=== PATIENT | male | born 1940 | race Caucasian/White ===

== ENCOUNTER 2019-08-02 05:54 | Inpatient (IN) | payer BC, OTHER ==
[2019-08-02] MEDS ORDERED: oxyCODONE HCL 10 MG SUSTAINED ACTING TABLET PO ONE ×2 (06:04→06:50)
[2019-08-02] MEDS ORDERED: CEFAZOLIN 2 GM in DEXTROSE 5%-WATER - 50 ML IVPB ONE (06:04)
[2019-08-02] MEDS ORDERED: TRANEXAMIC ACID 1000 MG/10 ML VIAL IVPUSH ONE (06:04)
[2019-08-02] MEDS ORDERED: CELECOXIB 200 MG CAPSULE PO ONE ×2 (06:04→07:00)
[2019-08-02] MEDS ORDERED: PANTOPRAZOLE 40 MG TABLET PO ONE ×2 (06:04→06:55)
[2019-08-02] MEDS ORDERED: BUPIVACAINE LIPOSOME/PF (EXPAREL) 266 MG/20 ML VIAL ONE (06:46)
[2019-08-02] MEDS ORDERED: MIDAZOLAM HCL 2 MG/2 ML SINGLE DOSE VIAL ONE ×2 (06:46→07:11)
[2019-08-02] MEDS ORDERED: SODIUM CHLORIDE 0.9% P/F 10 ML VIAL IJ ONE (06:47)
[2019-08-02 07:11] VITALS: BMI 25.0
[2019-08-02] MEDS ORDERED: PROPOFOL 20 ML ONE ×4 (07:11→10:05)
--- NOTE | 2019-08-02 07:28 | HP ---
Admitting History and Physical - Admission Chief Complaint: left knee osteoarthritis x years History of Present Illness: 78 year old male presents in regard to their left knee. Long-standing history of left knee osteoarthritis. Patient complains of pain, limited range of motion , difficulty ambulating, and difficulty with activities of daily living. Patient has failed conservative treatment options including PO medications, activity modification, injections, and exercise programs. At this point, patient like to proceed with surgical intervention, left total knee arthroplasty MAKOplasty. History Source: Patient - Past Medical History Cardiovascular: Yes: Hyperlipdemia Heme/Onc: Yes: B12 Deficiency Musculoskeletal: Yes: Osteoarthritis Endocrine: Yes: Diabetes Mellitus, Other (Vitamin D) - Past Surgical History Additional Past Surgical History: See written history & physical. - Smoking History Smoking history: Former smoker Have you smoked in the past 12 months: No If you are a former smoker, when did you quit?: 1973-STOOPED CIGARS AFTER IN 1988 - Alcohol/Substance Use Hx Alcohol Use: Yes (1-2 PER DAY) Home Medications - Allergies Allergies/Adverse Reactions: Allergies Allergy/AdvReac Type Severity Reaction Status Date / Time No Known Allergies Allergy Verified 08/02/19 06:49 - Home Medications Home Medications: Ambulatory Orders Aspirin [ASA -] 81 mg PO DAILY 07/16/19 Atorvastatin Ca [Lipitor] 20 mg PO DAILY 07/16/19 Calcium Citrate/Vitamin D3 [Calcium Citrate - Vit D3 Tab] 2 each PO BID Cholecalciferol (Vitamin D3) [Vitamin D3] 2,000 unit PO DAILY 07/16/19 Cyanocobalamin [Vitamin B12 -] 2,000 mcg PO DAILY 07/16/19 Metformin HCl [Glucophage] 1,000 mg PO BID 07/16/19 Multivit-Min/FA/Lycopen/Lutein [Centrum Silver Tablet] 1 each PO DAILY 07/16/19 [place]-3 Fatty Acids/Fish Oil [Fish Oil 1,000 mg Capsule] 1 each PO DAILY Ramipril 5 mg PO DAILY 07/16/19 Review of Systems - Review of Systems Musculoskeletal: reports: Crepitus (left knee), Decreased ROM (left knee), Joint Pain (left kneep), Joint Swelling (left knee) Physical Examination Vital Signs: Vital Signs Temperature 97.8 F 08/02/19 07:00 Pulse Rate 60 08/02/19 07:00 Respiratory Rate 18 01/13/20 07:00 Blood Pressure 148/78 08/02/19 07:00 O2 Sat by Pulse Oximetry (%) Constitutional: Yes: Well Nourished Eyes: Yes: Conjunctiva Clear, Diplopia HENT: Yes: Atraumatic Neck: Yes: Supple Cardiovascular: Yes: Regular Rate and Rhythm Respiratory: Yes: Regular Gastrointestinal: Yes: Soft ...Rectal Exam: Yes: Deferred Musculoskeletal: Yes: Joint Stiffness (left), Joint Swelling (left knee) Assessment/Plan 78 year old male presents in regard to their left knee. Long-standing history of left knee osteoarthritis. Patient complains of pain, limited range of motion , difficulty ambulating, and difficulty with activities of daily living. Patient has failed conservative treatment options including PO medications, activity modification, injections, and exercise programs. At this point, patient like to proceed with surgical intervention, left total knee arthroplasty MAKOplasty. Pros, cons, risks, benefits, and alternatives of a left total knee arthroplasty MAKOplasty were discussed with the patient at length. Patient confirms their understanding and consents to proceed with a left total knee arthroplasty MAKOplasty.
[2019-08-02] MEDS ORDERED: ceFAZolin SODIUM 1 GM VIAL ONE ×2 (07:39→07:40)
[2019-08-02] MEDS ORDERED: VANCOMYCIN 1,000 MG VIAL (RESTRICTED TO ID ONLY) ONE ×2 (07:40→10:07)
[2019-08-02] MEDS ORDERED: KETOROLAC TROMETHAMINE 30 MG/1 ML VIAL ONE (11:45)
[2019-08-02] MEDS ORDERED: traMADol HCL 50 MG TABLET ONE (11:45)
[2019-08-02] MEDS ORDERED: ACETAMINOPHEN INJECTION 100 ML IVPB ONE (11:45)
--- NOTE | 2019-08-02 12:32 | OP ---
Operative Note - Note: Operative Date: 08/02/19 Pre-Operative Diagnosis: Left knee OA Operation: left MEGAN TKA Post-Operative Diagnosis: Same as Pre-op Surgeon: Pierre Luna [employer] Attendant: Faviola Chatterjee Anesthesia: Spinal Estimated Blood Loss (mls): 200
[2019-08-02] MEDS ORDERED: ACETAMINOPHEN 1000 MG/100 ML VIAL (NON FORMULARY) IVPB ONE (12:36)
[2019-08-02] MEDS ORDERED: traMADol HCL 50 MG TABLET PO SCH (12:45)
[2019-08-02] MEDS ORDERED: KETOROLAC TROMETHAMINE 30 MG/1 ML VIAL IVPUSH SCH (12:45)
[2019-08-02] MEDS ORDERED: MAG HYDROX/AL HYDROX/SIMETH 30 ML UNIT-DOSE CUP PO PRN (12:48)
[2019-08-02] MEDS ORDERED: ONDANSETRON 4 MG/2 ML VIAL IVPUSH PRN ×2 (12:48→13:10)
[2019-08-02] MEDS ORDERED: MAGNESIUM HYDROX 2400MG/30ML ORAL SUSPENSION 30 ML CUP PO PRN (12:48)
[2019-08-02] MEDS ORDERED: LACTATED RINGERS SOLUTION 1,000 ML IV SCH (13:00)
[2019-08-02] MEDS ORDERED: PROMETHAZINE HCL 25 MG/1 ML VIAL IVPUSH PRN (13:10)
[2019-08-02] MEDS ORDERED: oxyCODONE HCL 5 MG TABLET PO PRN ×2 (13:10)
--- NOTE | 2019-08-02 16:26 | SPEC ---
DATE OF OPERATION: 08/02/2019 PREOPERATIVE DIAGNOSIS: Left knee osteoarthritis. POSTOPERATIVE DIAGNOSIS: Left knee osteoarthritis. PROCEDURE: Left total knee replacement with MAKOplasty robotic navigation. ATTENDING SURGEON: Ricky Howell MD SUBSTATION OPERATOR AUTOMATIC: [employer] ANESTHESIA: Spinal plus sedation. ESTIMATED BLOOD LOSS: 200 mL. COMPLICATIONS: None. DISPOSITION: The patient was transferred to the PACU in stable condition. IMPLANTS USED: [place] Triathlon cementless total knee components, size 6 femoral component, size 7 tibial component, 11-mm posterior stabilized polyethylene component, 35-mm patellar component. INDICATIONS: This is a 78-year-old male who presented to the office complaining of severe bilateral knee pain. He was seen and examined by Dr. Howell and diagnosed with severe bilateral knee osteoarthritis. The patient was treated initially nonoperatively with injections, medications, and physical therapy but continued to have severe pain and ambulatory dysfunction. He was, therefore, indicated for total knee replacements. The left knee was the more painful knee, so we elected to start with this one. The risks, benefits, and alternatives to the surgery were explained to the patient in great detail, and the patient elected to proceed with the procedure. DESCRIPTION OF PROCEDURE: On the day of surgery, the patient was taken to the operating room and placed on the OR table. Spinal anesthesia was administered by the anesthesiologist. The patient was then positioned supine on the table and all bony prominences were padded. The knee was then prepped and draped in the usual sterile fashion and intravenous antibiotics were given for infection prophylaxis. A surgical time-out was then performed with the team, and the patients identity, procedure, side, availability of implants, and the administration of antibiotics was confirmed. With the knee flexed, a midline incision was made and carried down through the subcutaneous fat to the underlying retinaculum. A medial parapatellar arthrotomy was performed. This was followed by a subperiosteal dissection of the tissue off the proximal, medial tibia. A portion of fat pad was removed from under the patellar tendon, and a small portion of fat was excised off the distal supracondylar femur. Electrocautery and an Clean [employer]ner[employer]ant[employer] bipolar sealing device were used to achieve hemostasis. The knee was then flexed further and the anterior horn of the lateral meniscus was released from the midline. Next, the anterior and posterior cruciate ligaments were transected. Grade 4 changes were noted diffusely throughout the knee. Femoral and tibial checkpoints were then placed in the appropriate location using a mallet. Two parallel bicortical self-drilling pins were placed in the tibial diaphysis after making stab incisions and bluntly dissecting down to bone. Two pins were then placed in the distal supracondylar femur. The [employer] software navigation arrays were then attached to both the femoral and tibial pins and the lower extremity was then registered to the robotic navigation device using various joint movements, as well as inputting several dozen reference points. The knee was then taken through a full range of motion with a corrective force applied. Alignment in varus/valgus as well as flexion/extension and soft tissue balance was measured in various positions. The navigation device showed a numerical and graphic representation of the soft tissue balance. The components were repositioned virtually using the software until optimal soft tissue balance was achieved on screen. Once this was accomplished, the final plan was saved and sent to the robot. Self-retaining retractors were then placed at the joint line for exposure and protection of the collateral ligaments. The robot was brought into the sterile field and registered with the navigation device. The robotic arm with attached oscillating saw blade was then used to perform femoral and tibial bone cuts as per the saved software plan. The femoral box cut was made using the appropriately sized manual cutting guide. The knee was then irrigated. Trial components were placed and the knee was taken through a full range of motion to assess soft tissue balance and alignment. The range of motion was found to be excellent and the soft tissue balance was optimal and according to plan. The knee was then put into extension and the patella everted. The synovium around the patella was circumscribed with electrocautery. A caliper was used to measure the patellar thickness and a saw was then used to resect the patella at the chondro-osseous junction. The cut surface was then sized and drilled for the appropriate patellar button, with care taken to medialize it. A trial patella was then placed and the knee was again taken through a full range of motion. The knee was found to have both good balance and good patellar tracking. All of the components were removed except the tibial base plate. The appropriate instrumentation was used to drill and punch the proximal tibia for the keel of the final component. All bony surfaces were then cleaned with pulsatile lavage and dried. Cementless [place] Triathlon knee replacement components were then impacted in place and found to have a stable press-fit. A trial polyethylene component was placed and the knee was again taken through a full range of motion to assess stability, balance, and patellar tracking. This was found to be optimal and the trial polyethylene was exchanged for the appropriately sized real implant. The wound was then thoroughly irrigated with normal saline. A 3-minute dilute Betadine lavage was performed. The knee was again irrigated using a pulsatile lavage device. A periarticular injection was used to locally infiltrate the capsular tissues surrounding the implant and prosthesis. Then No. 1 Polysorb and 0 VLoc 180 barbed sutures were used to close the arthrotomy. Then No. 1 Polysorb and 2-0 VLoc 90 sutures were used in the subcutaneous tissues. Then 4-0 undyed Vicryl and Dermabond skin adhesive was used to close the stab incisions made for the navigation pins. The skin was closed using both 3-0 VLoc 90 suture in a running subcuticular fashion and Dermabond skin adhesive. Once this was completed a sterile Aquacel dressing and compressive Seth-wrap was applied. The patient was then awakened and taken to the PACU in stable condition. RICKY HOWELL M.D. [id number]
[2019-08-02] MEDS: metFORMIN HCL 500 MG TABLET (FP) PO SCH (17:41)
[2019-08-02] MEDS: CEFAZOLIN 2 GM/D5W 2 GM/50 ML ML IVPB SCH (17:46)
[2019-08-02] MEDS ORDERED: DEXAMETHASONE SOD PHOSPHATE 10 MG/1 ML VIAL IVPB ONE (20:00)
[2019-08-02] MEDS: KETOROLAC TROMETHAMINE 15 MG/ML VIAL IVPUSH SCH (20:29)
[2019-08-02] MEDS: ACETAMINOPHEN 325 MG TABLET (FP) PO SCH (20:29)
[2019-08-02] MEDS: traMADol HCL 50 MG TABLET PO SCH (20:30)
[2019-08-02] MEDS: GABAPENTIN 300 MG CAPSULE PO SCH (21:46)
[2019-08-02] MEDS: CELECOXIB 200 MG CAPSULE PO SCH (21:46)
[2019-08-02] MEDS: oxyCODONE HCL 10 MG SUSTAINED ACTING TABLET PO SCH (21:47)
[2019-08-02] MEDS: SENNOSIDES/DOCUSATE COMBO (SENNA PLUS) TABLET (UD) PO SCH (21:47)
[2019-08-02] MEDS: ASCORBIC ACID 500 MG TABLET (FP) PO SCH (21:47)
[2019-08-03] MEDS: ACETAMINOPHEN 325 MG TABLET (FP) PO SCH ×4 (01:26→19:51)
[2019-08-03] MEDS: CEFAZOLIN 2 GM/D5W 2 GM/50 ML ML IVPB SCH (01:26)
[2019-08-03] MEDS: KETOROLAC TROMETHAMINE 15 MG/ML VIAL IVPUSH SCH ×2 (01:26→08:24)
[2019-08-03] MEDS: traMADol HCL 50 MG TABLET PO SCH ×4 (01:27→19:51)
[2019-08-03 08:06] LABS: HEMATOCRIT 30.3 % (35.4-49); HEMOGLOBIN 10.6 GM/dl (11.7-16.9); MCHC 34.8 g/dl (32.0-35.9); MEAN CELL VOLUME 91.7 fl (80-96); MEAN PLT VOLUME 8.2 fl (7.5-11.1); PLATELET COUNT 216 K/MM3 (134-434); RDW 12.1 % (11.9-15.9); WHITE BLOOD COUNT 10.4 K/mm3 (4.0-10.8)
[2019-08-03] MEDS: metFORMIN HCL 500 MG TABLET (FP) PO SCH ×2 (08:19→17:53)
[2019-08-03] MEDS: ASPIRIN 325 MG TABLET PO SCH (08:20)
[2019-08-03] MEDS: SENNOSIDES/DOCUSATE COMBO (SENNA PLUS) TABLET (UD) PO SCH ×2 (09:41→21:06)
[2019-08-03] MEDS: RAMIPRIL 5 MG CAPSULE (FP) PO SCH (09:42)
[2019-08-03] MEDS: MULTIVITAMINS (DAILY MVI) TABLET (FP) PO SCH (09:42)
[2019-08-03] MEDS: CELECOXIB 200 MG CAPSULE PO SCH ×2 (09:42→21:05)
[2019-08-03] MEDS: ASCORBIC ACID 500 MG TABLET (FP) PO SCH ×2 (09:42→21:05)
[2019-08-03] MEDS: GABAPENTIN 300 MG CAPSULE PO SCH ×2 (09:43→21:05)
[2019-08-03] MEDS: PANTOPRAZOLE 40 MG TABLET PO SCH (09:43)
[2019-08-03] MEDS: oxyCODONE HCL 10 MG SUSTAINED ACTING TABLET PO SCH ×2 (09:44→21:06)
[2019-08-03 10:59] LABS: BLOOD UREA NITROGEN 26.4 mg/dL (7-18); CALCIUM 8.9 mg/dL (8.5-10.1); CREATININE 1.1 mg/dL (0.55-1.3); POTASSIUM 4.4 mmol/L (3.5-5.1)
--- NOTE | 2019-08-03 13:44 | PN ---
Progress Note (short form) - Note Progress Note: ANESTHESIA POSTOP 78 YO MALE POD #1 S/P L TKR Patient sitting in chair. Tolerating PO. Pain adequately controlled. VSS, Afebrile Continue current care. No anesthetic complications.
[2019-08-03] MEDS: INSULIN (NOVOLOG) ASPART 100 UNITS/ML 10ML VIAL SQ SCH ×2 (17:53→21:07)
--- NOTE | 2019-08-03 21:19 | PN ---
Progress Note (short form) - Note Progress Note: Pt seen and examined. Doing well. AVSS Selected Entries 08/03/19 21:04 Temperature 97.8 F Pulse Rate 66 Respiratory 18 Rate Blood Pressure 121/46 L Laboratory Tests 08/03/19 08/03/19 08/03/19 07:25 07:25 16:43 WBC 10.4 Hgb 10.6 L Hct 30.3 L Plt Count 216 Sodium 136 Potassium 4.4 Chloride 103 Carbon Dioxide 28 Anion Gap 6 L BUN 26.4 H Creatinine 1.1 Est GFR (CKD-EPI)AfAm 75.18 Est GFR (CKD-EPI)NonAf 64.86 POC Glucometer 149 Calcium 8.9 Gen: NAD LLE: c/d/i, NVID A/P POD#1 s/p L MEGAN TKA PT/OOB - WBAT LLE D/C home in AM
--- NOTE | 2019-08-03 21:32 | DS ---
Physical Examination Vital Signs: Vital Signs Temperature 97.8 F 08/03/19 21:04 Pulse Rate 66 08/03/19 21:04 Respiratory Rate 18 08/03/19 21:04 Blood Pressure 121/46 L 08/03/19 21:04 O2 Sat by Pulse Oximetry (%) 100 08/03/19 20:05 Labs: CBC, BMP 08/03/19 07:25 08/03/19 07:25 Discharge Summary Problems reviewed: Yes Reason For Visit: LEFT KNEE OSTEOARTHRITIS Current Active Problems Osteoarthritis of left knee (Acute) Procedures: Principal: left MEGAN TKA Hospital Course: Admitted for elective surgery. Procedure performed without complications. Pt received postoperative antibiotic prophylaxis and DVT ppx. Ambulated with physical therapy. Stable for discharge home with outpatient followup. Condition: Stable - Instructions Diet, Activity, Other Instructions: Dr. Luna - Knee Replacement Instructions Keep the Aquacel dressing on until removed by Dr. Luna in the office - it is antibacterial and waterproof and you can shower with it on. Call the office for a follow-up appointment with Dr. Luna in 2 weeks. Take one Aspirin 325mg daily for 6 weeks to prevent blood clots in your legs. Take one Pantoprazole 40mg daily for 6 weeks to protect against heartburn and ulcers. Take Cephalexin (antibiotic) 3x/day for 10 days to help prevent skin infection. Take Celebrex 200mg daily for 30 days to reduce swelling and inflammation. Take a multivitamin, stool softener, and extra Vitamin C supplement daily. For pain: *Mild pain (1-3/10): Take 1 Tramadol tablet every 4 hours as needed. Moderate pain (4-6/10): Take 1 Tramadol tablet and 1 Percocet tablet every 4 hours as needed. Severe pain (7-10/10): Take 1 Tramadol tablet and 2 Percocet tablets every 4 hours as needed. Activity: You can put as much weight on the operative leg as you want. Right after you get home, there will be a physical therapist coming to your house to help you walk around and bend/straighten your knee. After your follow-up appointment, you will be sent for more intensive outpatient physical therapy which will include machines and equipment that the home therapist cannot bring to your house. Always use a walker or cane for balance and to prevent falls. Expect to see swelling/bruising from the operative site all the way down to your toes. Wear the compression stocking on the operative side during the day to minimize how much swelling there is in your foot/ankle. Don't wear the stocking at night. You don't have to wear a stocking on the other side. Disposition: [facility]/HOME HEALTH CARE - Home Medications Comprehensive Discharge Medication List: Ambulatory Orders Atorvastatin Ca [Lipitor] 20 mg PO DAILY 07/16/19 Calcium Citrate/Vitamin D3 [Calcium Citrate - Vit D3 Tab] 2 each PO BID Cholecalciferol (Vitamin D3) [Vitamin D3] 2,000 unit PO DAILY 07/16/19 Cyanocobalamin [Vitamin B12 -] 2,000 mcg PO DAILY 07/16/19 Metformin HCl [Glucophage] 1,000 mg PO BID 07/16/19 Multivit-Min/FA/Lycopen/Lutein [Centrum Silver Tablet] 1 each PO DAILY 07/16/19 [place]-3 Fatty Acids/Fish Oil [Fish Oil 1,000 mg Capsule] 1 each PO DAILY Ramipril 5 mg PO DAILY 07/16/19 Ascorbic Acid [Vitamin C -] 500 mg PO BID tablet 08/03/19 Aspirin [ASA -] 325 mg PO DAILY@0800 tablet 08/03/19 Celecoxib [CeleBREX -] 200 mg PO DAILY #30 capsule 08/03/19 Cephalexin Monohydrate [Keflex -] 500 mg PO TID #30 capsule 08/03/19 Multivitamins [Multivit ([facility] Formulary)] 1 tab PO DAILY tab 08/03/19 Oxycodone HCl/Acetaminophen [Percocet 5-325 mg Tablet] 1 - 2 tab PO Q4H PRN #60 tablet MDD 10 08/03/19 Pantoprazole Sodium [Protonix -] 40 mg PO DAILY #40 tablet.ec 08/03/19 Sennosides/Docusate Sodium [Pericolace -] 2 tablet PO BID tablet 08/03/19 traMADol HCL [Ultram -] 50 mg PO Q4H PRN #42 tablet MDD 6 08/03/19
[2019-08-03] MEDS ORDERED: ATORVASTATIN CA 20 MG TABLET (FP) PO SCH (22:00)
[2019-08-04] MEDS: traMADol HCL 50 MG TABLET PO SCH ×2 (02:19→08:33)
[2019-08-04] MEDS: ACETAMINOPHEN 325 MG TABLET (FP) PO SCH ×2 (02:20→08:33)
[2019-08-04] MEDS: INSULIN (NOVOLOG) ASPART 100 UNITS/ML 10ML VIAL SQ SCH (06:30)
[2019-08-04] MEDS: metFORMIN HCL 500 MG TABLET (FP) PO SCH (06:30)
[2019-08-04 06:31] VITALS: BP 120/41; PULSE 66; TEMP 98.1
[2019-08-04 07:56] LABS: HEMATOCRIT 28.2 % (35.4-49); HEMOGLOBIN 9.4 GM/dl (11.7-16.9); MCH 31.5 pg (25.7-33.7); MCHC 33.4 g/dl (32.0-35.9); MEAN CELL VOLUME 94.3 fl (80-96); MEAN PLT VOLUME 8.2 fl (7.5-11.1); PLATELET COUNT 189 K/MM3 (134-434); RBC 2.99 M/mm3 (4.00-5.60); WHITE BLOOD COUNT 9.3 K/mm3 (4.0-10.8)
[2019-08-04] MEDS: ASPIRIN 325 MG TABLET PO SCH (08:33)
[2019-08-04] MEDS: oxyCODONE HCL 10 MG SUSTAINED ACTING TABLET PO SCH (09:43)
[2019-08-04] MEDS: CELECOXIB 200 MG CAPSULE PO SCH (09:45)
[2019-08-04] MEDS: ASCORBIC ACID 500 MG TABLET (FP) PO SCH (09:45)
[2019-08-04] MEDS: RAMIPRIL 5 MG CAPSULE (FP) PO SCH (09:45)
[2019-08-04] MEDS: GABAPENTIN 300 MG CAPSULE PO SCH (09:45)
[2019-08-04] MEDS: MULTIVITAMINS (DAILY MVI) TABLET (FP) PO SCH (09:46)
[2019-08-04] MEDS: SENNOSIDES/DOCUSATE COMBO (SENNA PLUS) TABLET (UD) PO SCH (09:46)
[2019-08-04] MEDS: PANTOPRAZOLE 40 MG TABLET PO SCH (09:46)
--- NOTE | 2019-08-09 13:19 | PATH ---
Surgical Pathology Report Patient Name: DANTE RUSSELL Med. Rec. #: [id number] /Age/Gender: 1940 (Age: 78) / M Account: [id number] Location: [facility] MED-SURG Taken: 08/02/2019 Received: 08/02/2019 Reported: 08/09/2019 Physicians: Pierre Luna M.D. Specimen(s) Received BONE & TISSUE LEFT KNEE Clinical History Osteoarthritis left knee Final Diagnosis KNEE, LEFT, BONE AND TISSUE, TOTAL KNEE REPLACEMENT: DEGENERATIVE JOINT DISEASE. FIBROSYNOVIAL TISSUE SHOWING NODULAR AGGREGATES OF FIBRILLAR TISSUE WITH SURROUNDING HISTIOCYTIC /GIANT CELL REACTION, COMPATIBLE WITH GOUTY TOPHI. Note: Shidham staining method (which aids in the evaluation of birefringent properties of diagnostic crystals in formalin-fixed paraffin-embedded tissue sections) was used in the evaluation of this case; however no polarizable crystals were identified, which may be a result of technical issues such as decalcification of the tissue. The diagnosis is based on the morphologic appearance of gouty tophi in routine H&E stained sections. Electronically Signed Vanita Martínez M.D. Gross Description Received in formalin labeled "bone and tissue left knee," is a 14.5 x 11.5 x 2.0 cm aggregate of multiple portions of bone and soft tissue, consistent with knee bones. There are multiple areas of eburnation present, measuring up to 2.5 cm in greatest dimension. The remaining articular surfaces are sparks-yellow and diffusely granular. The underlying trabecular bone is yellow and hard. Owner Professional Engineer sections are submitted in one cassette, following decalcification. 08/04/2019 [facility]08/04/2019
== END 2019-08-04 12:10 | disposition home health service (06) | DRG 470 ==
LOC: FM/S 05:54
PROVIDERS: ADMIT Student in an Organized Health Care Education/Training Program; ATTEND Student in an Organized Health Care Education/Training Program
PROC: 8E0Y0CZ Robotic Assisted Procedure of Lower Extremity, Open Approach (ICD-10-PCS; 2019-08-02)
PROC: 0SRD0JA Replacement of Left Knee Joint with Synthetic Substitute, Uncemented, Open Approach (ICD-10-PCS; principal; 2019-08-02 08:00)
DX: M17.12 Unilateral primary osteoarthritis, left knee (principal); E78.5 Hyperlipidemia, unspecified; E11.9 Type 2 diabetes mellitus without complications; Z87.891 Personal history of nicotine dependence; Z79.84 Long term (current) use of oral hypoglycemic drugs
CPT/HCPCS: 36415; 73560-TC-LT-FY; 80048; 82962; 85027; 88305-TC; 88311-TC; 94760; 97116-GP; 97163-GP; J0131; J1100

== ENCOUNTER 2021-05-05 15:35 | Emergency (ER) | payer OTHER ==
[2021-05-05 16:38] VITALS: BP 125/59; PULSE 65; TEMP 99.2; BMI 25.0
[2021-05-05] MEDS ORDERED: DIPHTH,PERTUSS(ACELL),TET 0.5 ML DISP.SYRIN IM ONE ×2 (16:49→17:05)
== END 2021-05-05 17:13 | disposition home or self-care (01) ==
LOC: FER 15:35
PROC: 3E0234Z Introduction of Serum, Toxoid and Vaccine into Muscle, Percutaneous Approach (ICD-10-PCS; principal; 2021-05-05)
PROC: 0HQFXZZ Repair Right Hand Skin, External Approach (ICD-10-PCS; 2021-05-05)
DX: S61.210A Laceration without foreign body of right index finger without damage to nail, initial encounter (principal); S61.214A Laceration without foreign body of right ring finger without damage to nail, initial encounter; W31.2XXA Contact with powered woodworking and forming machines, initial encounter; Y93.89 Activity, other specified
CPT/HCPCS: 12001-25; 90471; 90715; 99284-25

== ENCOUNTER 2021-05-12 09:20 | Emergency (ER) | payer OTHER ==
[2021-05-12 09:33] VITALS: BP 137/63; PULSE 58; TEMP 97.4; BMI 25.7
== END 2021-05-12 09:50 | disposition home or self-care (01) ==
LOC: FER 09:20
DX: Z48.00 Encounter for change or removal of nonsurgical wound dressing (principal)
CPT/HCPCS: 99281-25

== ENCOUNTER 2021-05-15 09:16 | Emergency (ER) | payer OTHER ==
[2021-05-15 09:23] VITALS: BP 121/50; PULSE 60; TEMP 98.1; BMI 24.4
== END 2021-05-15 09:44 | disposition home or self-care (01) ==
LOC: FER 09:16
DX: Z48.02 Encounter for removal of sutures (principal)
CPT/HCPCS: 99283-25; 99284-25

== ENCOUNTER 2023-11-27 10:55 | Observation (INO) | payer OTHER ==
[2023-11-27] MEDS ORDERED: ONDANSETRON 4 MG/2 ML VIAL ONE (13:04)
[2023-11-27] MEDS: ONDANSETRON 4 MG/2 ML VIAL IVPUSH ONE (13:10)
[2023-11-27 13:33] LABS: INR 0.98 (0.83-1.09); PROTHROMBIN TIME (PATIENT) 11.2 SEC (9.7-13.0)
[2023-11-27 13:36] LABS: ACTIVATED PTT 36.3 SECONDS (25.2-36.5)
[2023-11-27 13:37] LABS: HEMATOCRIT 45.6 % (35.4-49); HEMOGLOBIN 15.4 G/dL (11.7-16.9); MCH 31.2 pg (25.7-33.7); MCHC 33.7 g/dl (32.0-35.9); MEAN CELL VOLUME 92.6 fl (80-96); PLATELET COUNT 299.3 10^3/uL (134-434); RBC 4.92 10^6/uL (4.00-5.60); RDW 15.3 % (11.9-15.9); WHITE BLOOD COUNT 21.9 10^3/uL (4.0-10.8)
[2023-11-27 13:38] LABS: ADD RBC MORPHOLOGY YES
[2023-11-27 13:44] LABS: ALBUMIN 4.1 g/dl (3.4-5.0); ALK PHOS 58 U/L (45-117); ANION GAP 13 mmol/L (4-13); BILIRUBIN,TOTAL 0.6 mg/dl (0.2-1); CALCIUM 9.3 mg/dl (8.5-10.1); CHLORIDE 97 mmol/L (98-107); CO2 22 mmol/L (21-32); CREATININE 1.5 mg/dl (0.6-1.3); GLUCOSE,RANDOM 171 mg/dl (74-106); POTASSIUM 4.2 mmol/L (3.5-5.1); SGOT/AST 22 U/L (15-37); SGPT/ALT 16 U/L (7-52); SODIUM 132 mmol/L (136-145); TOT PROT 6.5 g/dl (6.4-8.2)
[2023-11-27 14:21] LABS: ANISOCYTOSIS 1+; PLATELET ESTIMATE ADEQUATE
[2023-11-27 15:53] LABS: LACTIC ACID 3.2 mmol/L (0.4-2.0)
[2023-11-27] MEDS: SODIUM CHLORIDE 1,000 ML IV STA (16:54)
[2023-11-27 18:43] VITALS: BMI 23.9
[2023-11-27 19:56] LABS: LACTIC ACID 2.4 mmol/L (0.4-2.0)
[2023-11-27] MEDS ORDERED: ONDANSETRON 4 MG/2 ML VIAL IVPUSH PRN (21:34)
[2023-11-27] MEDS: DEXTROSE 5%-0.45% SALINE 1,000 ML IV SCH (23:32)
[2023-11-28 08:26] LABS: ANION GAP 9 mmol/L (4-13); CALCIUM 8.8 mg/dl (8.5-10.1); CHLORIDE 100 mmol/L (98-107); CO2 26 mmol/L (21-32); GLUCOSE,RANDOM 181 mg/dl (74-106); POTASSIUM 3.6 mmol/L (3.5-5.1); SODIUM 135 mmol/L (136-145)
[2023-11-28 09:27] LABS: BASO % 0.2 % (0-2.0); EOS % 0.1 % (0-4.5); HEMOGLOBIN 13.4 GM/dL (11.7-16.9); LYMPH % 5.2 % (8-40); MCH 31.2 pg (25.7-33.7); MCHC 34.5 g/dl (32.0-35.9); MEAN CELL VOLUME 90.4 fl (80-96); MEAN PLT VOLUME 7.7 fl (7.5-11.1); MONO % 12.2 % (3.8-10.2); NEUT % 82.3 % (42.8-82.8); PLATELET COUNT 257 10^3/uL (134-434); RBC 4.31 M/mm3 (4.00-5.60); RDW 14.3 % (11.9-15.9); WHITE BLOOD COUNT 13.2 K/mm3 (4.0-10.0)
[2023-11-28] MEDS: SODIUM CHLORIDE 1,000 ML IV SCH (10:23)
[2023-11-28] MEDS ORDERED: CEFTRIAXONE 1 GM in DEXTROSE 5%-WATER - 50 ML IVPB SCH (18:15)
[2023-11-28] MEDS: LACTATED RINGERS SOLUTION 1,000 ML/1,000 ML INFUS.BAG IV SCH (18:20)
[2023-11-28] MEDS: AZITHROMYCIN IVPB 500 MG/250 ML BAG IVPB SCH (18:47)
[2023-11-28] MEDS: guaiFENesin 200 MG/10 ML 10 ML UNIT-DOSE CUPS PO PRN (18:50)
[2023-11-28] MEDS: ALBUTEROL SO4 2.5/IPRATROPIUM 0.5 INH SOL 3 ML VIAL.NEB. NEB PRN (19:02)
[2023-11-28] MEDS: AMPICILLIN NA/SULBACTAM NA 1.5 GM in SODIUM CHLORIDE 100 ML IVPB SCH (20:12)
[2023-11-29] MEDS ORDERED: ACETAMINOPHEN 325 MG TABLET (FP) PO PRN (10:46)
[2023-11-29] MEDS: PANTOPRAZOLE SOD 40 MG SUSPENSION PACKET PO SCH (12:31)
[2023-11-29] MEDS: HEPARIN NA (PORCINE) 5,000 UNITS/ML 1ML VIAL SQ SCH (15:00)
[2023-11-30 10:00] LABS: BASO % 0.3 % (0-2.0); EOS % 0.1 % (0-4.5); HEMATOCRIT 36.1 % (35.4-49); HEMOGLOBIN 12.4 GM/dL (11.7-16.9); LYMPH % 8.7 % (8-40); MCH 31.2 pg (25.7-33.7); MCHC 34.4 g/dl (32.0-35.9); MEAN CELL VOLUME 90.5 fl (80-96); MONO % 11.6 % (3.8-10.2); NEUT % 79.3 % (42.8-82.8); PLATELET COUNT 223 10^3/uL (134-434); RBC 3.98 M/mm3 (4.00-5.60); RDW 13.8 % (11.9-15.9)
[2023-11-30 10:23] LABS: ALBUMIN 3.1 g/dl (3.4-5.0); BILIRUBIN,TOTAL 0.6 mg/dl (0.2-1); CALCIUM 8.6 mg/dl (8.5-10.1); CREATININE 0.7 mg/dl (0.6-1.3); POTASSIUM 3.8 mmol/L (3.5-5.1); TOT PROT 5.1 g/dl (6.4-8.2)
[2023-12-01 09:18] VITALS: BP 125/63; PULSE 75; RESP 18; TEMP 98.7
[2023-12-01 09:24] LABS: ALBUMIN 3.1 g/dl (3.4-5.0); ALK PHOS 42 U/L (45-117); ANION GAP 7 mmol/L (4-13); BILIRUBIN,TOTAL 0.7 mg/dl (0.2-1); CALCIUM 8.6 mg/dl (8.5-10.1); CHLORIDE 102 mmol/L (98-107); CO2 28 mmol/L (21-32); CREATININE 0.7 mg/dl (0.6-1.3); GLUCOSE,RANDOM 150 mg/dl (74-106); POTASSIUM 3.3 mmol/L (3.5-5.1); SGOT/AST 51 U/L (15-37); SGPT/ALT 70 U/L (7-52); SODIUM 137 mmol/L (136-145)
[2023-12-01 09:34] LABS: BASO % 0.3 % (0-2.0); EOS % 0.4 % (0-4.5); HEMATOCRIT 32.6 % (35.4-49); HEMOGLOBIN 11.5 GM/dL (11.7-16.9); LYMPH % 14.7 % (8-40); MCH 31.6 pg (25.7-33.7); MCHC 35.1 g/dl (32.0-35.9); MEAN CELL VOLUME 89.9 fl (80-96); MEAN PLT VOLUME 7.8 fl (7.5-11.1); MONO % 10.1 % (3.8-10.2); NEUT % 74.5 % (42.8-82.8); PLATELET COUNT 240 10^3/uL (134-434); RBC 3.63 M/mm3 (4.00-5.60); WHITE BLOOD COUNT 8.4 K/mm3 (4.0-10.0)
== END 2023-12-01 12:48 | disposition home or self-care (01) ==
LOC: FER 10:55 → FM/S 17:21
PROVIDERS: ADMIT Internal Medicine
PROC: 3E0F7GC Introduction of Other Therapeutic Substance into Respiratory Tract, Via Natural or Artificial Opening (ICD-10-PCS; principal; 2023-11-27)
PROC: 3E03329 Introduction of Other Anti-infective into Peripheral Vein, Percutaneous Approach (ICD-10-PCS; 2023-11-27)
PROC: 3E033GC Introduction of Other Therapeutic Substance into Peripheral Vein, Percutaneous Approach (ICD-10-PCS; 2023-11-27)
PROC: 3E023GC Introduction of Other Therapeutic Substance into Muscle, Percutaneous Approach (ICD-10-PCS; 2023-11-27)
PROC: 3E0337Z Introduction of Electrolytic and Water Balance Substance into Peripheral Vein, Percutaneous Approach (ICD-10-PCS; 2023-11-27)
DX: K52.9 Noninfective gastroenteritis and colitis, unspecified (principal); F03.90 Unspecified dementia, unspecified severity, without behavioral disturbance, psychotic disturbance, mood disturbance, and anxiety; R19.7 Diarrhea, unspecified; N17.9 Acute kidney failure, unspecified; I10 Essential (primary) hypertension; E78.5 Hyperlipidemia, unspecified; E11.9 Type 2 diabetes mellitus without complications; M19.90 Unspecified osteoarthritis, unspecified site; T17.800A Unspecified foreign body in other parts of respiratory tract causing asphyxiation, initial encounter; Z87.891 Personal history of nicotine dependence; J69.0 Pneumonitis due to inhalation of food and vomit; R05.9 Cough, unspecified; M17.12 Unilateral primary osteoarthritis, left knee
CPT/HCPCS: 0241U-QW; 36415; 71045-TC-FY; 74177-TC; 80048; 80053; 81003; 83605; 83880; 85025; 85610; 85730; 86625; 86850; 86900; 86901; 87040; 87086; 87899; 93005; 94640; 96361; 96365; 96367; 96368; 96372; 96375; 97116-GP; 97162-GP; 99285-25; G0378; J1644; Q9967